=== PATIENT | female | born 1990 ===

== ENCOUNTER 2022-12-29 12:18 | Outpatient (CLI) | payer OTHER | END 2022-12-29 13:11 | disposition home or self-care (01) | LOC: PRENATAL 12:18 | PROVIDERS: ATTEND Obstetrics & Gynecology Maternal & Fetal Medicine | DX: O35.3XX0 Maternal care for (suspected) damage to fetus from viral disease in mother, not applicable or unspecified (principal); O28.3 Abnormal ultrasonic finding on antenatal screening of mother; O40.1XX0 Polyhydramnios, first trimester, not applicable or unspecified; Z3A.23 23 weeks gestation of pregnancy ==